=== PATIENT | female | born 1980 | race Caucasian/White ===

== ENCOUNTER 2017-06-07 11:19 | Emergency (ER) | payer OTHER | END 2017-06-07 12:35 | disposition left against medical advice (07) | LOC: SCSER 11:19 | DX: F41.9 Anxiety disorder, unspecified (principal); Z79.899 Other long term (current) drug therapy | CPT/HCPCS: 99283 ==

== ENCOUNTER 2017-08-10 08:56 | Day surgery (SDC) | payer BC ==
[2017-08-09 11:11] VITALS: BMI 23.8
[2017-08-10] MEDS ORDERED: Oxymetazoline HCl 0.05% ( 15 ML ) ONE ×2 (09:17→09:31)
[2017-08-10] MEDS ORDERED: Lidocaine 1% w/Epinephrine 1:200K 30 ML VIAL ONE (09:31)
[2017-08-10 09:41] LABS: BHCG - Serum Negative (NEGATIVE); Pregs Control Background? CLEAR/WHITE (CLR/WHITE); Pregs Control Bar Appear? YES (CONTROL BAR)
[2017-08-10] MEDS ORDERED: Fentanyl 100 MCG/2 ML VIAL ONE ×2 (09:46→11:01)
[2017-08-10] MEDS ORDERED: Midazolam HCl 2 mg/2 ml Vial ONE (09:56)
[2017-08-10] MEDS ORDERED: Glycopyrrolate 0.2 MG/ML 5 ML SYRINGE ONE (15:18)
[2017-08-10] MEDS ORDERED: Propofol 200 MG/20 ML VIAL ONE (15:18)
[2017-08-10] MEDS ORDERED: Dexamethasone 20 MG/5 ML VIAL ONE (15:18)
[2017-08-10] MEDS ORDERED: Lidocaine 1% PF 5 ML VIAL ONE (15:18)
[2017-08-10] MEDS ORDERED: Ondansetron HCl/PF 4 MG/2 ML Vial ONE (15:18)
--- NOTE | 2017-08-10 21:18 | OP ---
PREOPERATIVE DIAGNOSES: 1. Chronic rhinosinusitis. 2. Bilateral inferior turbinate hypertrophy. 3. Nasal obstruction. POSTOPERATIVE DIAGNOSES: 1. Chronic rhinosinusitis. 2. Bilateral inferior turbinate hypertrophy. 3. Nasal obstruction. PROCEDURES: 1. Bilateral endoscopic sinus surgery, total ethmoidectomies. 2. Bilateral endoscopic sinus surgery, maxillary antrostomies. 3. Bilateral endoscopic sinus surgery, frontal sinusotomies. 4. Bilateral endoscopic sinus surgery, sphenoidotomies. 5. Bilateral inferior turbinate submucosal resection. 6. Outfracture of inferior turbinates. SURGEON: Alvarez Benedict M.D. ESTIMATED BLOOD LOSS: 20 mL. COMPLICATIONS: None. ANESTHESIA: GETA. PROCEDURE: The patient taken to the operating room and placed on the table. General endotracheal an esthesia was obtained by the Anesthesia staff. Tube was secured in the left lower lip. The patient was then placed in the beach chair position and was prepped and draped for standard nasal procedure. As Afrin pledgets were placed in the nasal cavity. Following this, the Afrin pledgets were then rem lamberto. The 0 degree scope was used to guide a 27-gauge needle with 1% lidocaine with 1:100,000 epinep hrine make injections into the middle turbinates, inferior turbinates, and lateral nasal wall bilater ally. Following this, the middle turbinates were gently medialized with a [place] elevator and the unc inate process was identified bilaterally. Following this, the uncinate was anteriorly fractured usin g the ball-ended probe and then was further removed using the upbiting Blakesley forceps and straight microdebrider. Following this, the natural maxillary sinus ostia was identified and was gently wide pro using the ball-ended probe and straight microdebrider. Following this, the ethmoidal bulla was i dentified and was punctured on its medial and inferior aspect and was removed using the microdebrider . Following this, the ground lamella was identified and was punctured into the posterior ethmoidal c ells. Working from posterior to anterior, the ethmoidal cells were opened in a mucosal-sparing techn ique. Following this, the sphenoid sinuses were approached staying medial to the middle turbinate wh ere the attachment of the superior turbinate to the posterior nasal wall was identified. Staying jus t medial and inferior to this, the sphenoidotomies were widened with the microdebrider medially and i nferiorly. Following this, the 45 degree scope and the upbiting microdebrider was then used to furth er open the frontal recess cells bilaterally as well as identify the frontal sinus ostia, which was t hen widened using the microdebrider bilaterally. Following this, inferior turbinates were punctured on the anterior and inferior aspect and submucosal resection with the submucosal microdebrider was us ed to reduce the inferior turbinates. The inferior turbinates were then laterally fractured. The pa tient tolerated the procedure well. Nasal cavity was irrigated. MeroPacks were placed within the mi ddle meatus.
== END 2017-08-10 13:30 | disposition home or self-care (01) ==
LOC: SDC 08:56
PROVIDERS: ATTEND Otolaryngology Plastic Surgery within the Head & Neck
PROC: 099T8ZZ Drainage of Left Frontal Sinus, Via Natural or Artificial Opening Endoscopic (ICD-10-PCS; principal; 2017-08-10)
PROC: 09TV8ZZ Resection of Left Ethmoid Sinus, Via Natural or Artificial Opening Endoscopic (ICD-10-PCS; principal; 2017-08-10)
PROC: 09SL0ZZ Reposition Nasal Turbinate, Open Approach (ICD-10-PCS; principal; 2017-08-10)
PROC: 099X8ZZ Drainage of Left Sphenoid Sinus, Via Natural or Artificial Opening Endoscopic (ICD-10-PCS; principal; 2017-08-10)
PROC: 099S8ZZ Drainage of Right Frontal Sinus, Via Natural or Artificial Opening Endoscopic (ICD-10-PCS; principal; 2017-08-10)
PROC: 099Q8ZZ Drainage of Right Maxillary Sinus, Via Natural or Artificial Opening Endoscopic (ICD-10-PCS; principal; 2017-08-10)
PROC: 099W8ZZ Drainage of Right Sphenoid Sinus, Via Natural or Artificial Opening Endoscopic (ICD-10-PCS; principal; 2017-08-10)
PROC: 09TU8ZZ Resection of Right Ethmoid Sinus, Via Natural or Artificial Opening Endoscopic (ICD-10-PCS; principal; 2017-08-10)
PROC: 09BL0ZZ Excision of Nasal Turbinate, Open Approach (ICD-10-PCS; principal; 2017-08-10)
PROC: 099R8ZZ Drainage of Left Maxillary Sinus, Via Natural or Artificial Opening Endoscopic (ICD-10-PCS; principal; 2017-08-10)
DX: J32.9 Chronic sinusitis, unspecified (principal); J34.3 Hypertrophy of nasal turbinates
CPT/HCPCS: 36415; 84703; 85014; 96374; J1100; J2001; J2250; J2405; J2704; J3010